=== PATIENT | male | born 1935 | race Caucasian/White ===

== ENCOUNTER 2019-03-25 10:59 | Inpatient (IN) | payer OTHER, BC ==
--- NOTE | 2019-03-25 12:50 | PDOC ---
Documentation entered by Pattie Lin SCRIBE, acting as scribe for Josiah Vazquez MD. Josiah Vazquez MD: This documentation has been prepared by the Delia martinez Brenda, SCRIBE, under my direction and personally reviewed by me in its entirety. I confirm that the documentation accurately reflects all work, treatment, procedures, and medical decision making performed by me. History of Present Illness - General Chief Complaint: Injury Stated Complaint: FALL/LEG PAIN Time Seen by Provider: 03/25/19 12:22 History Source: Patient Exam Limitations: No Limitations - History of Present Illness Initial Comments: 03/25/19 12:45 The patient is an 84 year old male, with a significant PMH of HTN, HLD and aortic valve replacement (not on AC) who presents to the emergency department BIBA s/p slipping on ice and falling. Patient reports falling on ice, and landing onto his R leg and side. Patient notes pain on the lateral right side of his ribs, as well as pain and swelling to his R thigh and knee. Pt was unable to stand up after the fall. The patient denies LOC, head trauma and neck trauma. Denies chest pain, shortness of breath, headache and dizziness. Denies fever, chills, nausea, vomiting, diarrhea and constipation. Denies dysuria, frequency, urgency and hematuria. Allergies: NKA Past surgical history: Aortic valve replacement (2012) Social history: Former smoker, moderate alcohol use. Past History - Past Medical History Allergies/Adverse Reactions: Allergies Allergy/AdvReac Type Severity Reaction Status Date / Time ciprofloxacin [From Cipro] AdvReac "THRUSH" Verified 03/25/19 11:20 Home Medications: Ambulatory Orders Atorvastatin Ca [Lipitor] 5 mg PO HS 10/25/14 Doxazosin Mesylate 2 mg PO HS 10/25/14 Olmesartan/Hydrochlorothiazide [Benicar Hct 40-25 mg Tablet] 1 each PO DAILY [place]-3 Acid Ethyl Esters [Lovaza -] 2 gm PO BID 10/25/14 Ranitidine [Zantac -] 150 mg PO BID 10/25/14 Verapamil HCl [Verapamil ER] 240 mg PO HS 10/25/14 Aspirin Coated [Ecotrin -] 81 mg PO DAILY #0 10/28/14 Niacin [Niaspan] 500 mg PO HS #0 10/28/14 Acetaminophen [Tylenol .Extra-Strength -] 500 mg PO BID 03/08/15 Ascorbic Acid [Vitamin C] 500 mg PO DAILY 03/08/15 Docusate Sodium [Colace -] 100 mg PO BID 03/08/15 Glucosamine HCl/Chondr Amador A Na [Glucosamine-Chondr Caplet] 1 each PO DAILY 03/08 Vitamin A [Aquasol A -] 10,000 units NR DAILY 03/08/15 Vitamin E 400 unit PO DAILY 03/08/15 Zinc [Guided Mineral Zinc] 50 mg PO DAILY 03/08/15 Anemia: No Asthma: No Cancer: No Cardiac Disorders: Yes (AORTIC VALVE REPLACEMENT 2012) CVA: No COPD: No CHF: No Dementia: No Diabetes: No GI Disorders: Yes (REFLUX, COLON POLYPS) Disorders: No HTN: Yes Hypercholesterolemia: Yes Liver Disease: No Seizures: No Thyroid Disease: No - Surgical History Abdominal Surgery: No Appendectomy: No Cardiac Surgery: Yes (AORTIC VALVE REPLACEMENT (BOVINE)) Cholecystectomy: No Lung Surgery: No Neurologic Surgery: No - Psycho Social/Smoking Cessation Hx Smoking History: Former smoker Have you smoked in the past 12 months: No If you are a former smoker, when did you quit?: 50YRS AGO Information on smoking cessation initiated: No Hx Alcohol Use: Yes ("MODERATELY") Drug/Substance Use Hx: No Substance Use Type: Alcohol Hx Substance Use Treatment: No Review of Systems - Review of Systems Able to Perform ROS?: Yes Comments:: 03/25/19 12:45 GENERAL/CONSTITUTIONAL: No fever or chills. No weakness. HEAD, EYES, EARS, NOSE AND THROAT: No change in vision. No ear pain or discharge. No sore throat. CARDIOVASCULAR: No chest pain, no shortness of breath, no loss of consciousness RESPIRATORY: No cough, wheezing, or hemoptysis. GASTROINTESTINAL: No nausea, vomiting, diarrhea or constipation. GENITOURINARY: No dysuria, frequency, or change in urination. MUSCULOSKELETAL: (+) Swollen right knee. (+) Pain in R thigh. No neck pain. SKIN: No rash NEUROLOGIC: No vertigo, no change in strength/sensation. ENDOCRINE: No increased thirst. No abnormal weight change. HEMATOLOGIC/LYMPHATIC: No anemia, easy bleeding, or history of blood clots. ALLERGIC/IMMUNOLOGIC: No hives or skin allergy. *Physical Exam - Vital Signs Last Vital Signs Temp Pulse Resp BP Pulse Ox 97.5 F L 80 16 155/59 L 98 03/25/19 11:15 03/25/19 11:30 03/25/19 11:30 03/25/19 11:30 03/25/19 11:30 - Physical Exam 03/25/19 12:54 "GENERAL: Awake, alert, and fully oriented, in no acute distress. HEAD: No signs of trauma EYES: PERRLA, EOMI, sclera anicteric, conjunctiva clear ENT: Auricles normal inspection, hearing grossly normal, nares patent, oropharynx clear without exudates. Moist mucosa NECK: Nontender, no stepoffs, Normal ROM, supple, no lymphadenopathy, JVD, or masses LUNGS: Breath sounds equal, clear to auscultation bilaterally. No wheezes, and no crackles HEART: Regular rate and rhythm, normal S1 and S2, no murmurs, rubs or gallops ABDOMEN: Soft, nontender, normoactive bowel sounds. No guarding, no rebound. No masses EXTREMITIES: + tenderness and swelling to distal R thigh, + R knee large hemarthrosis NEUROLOGICAL: Cranial nerves II through XII intact. 5/5 strength and sensation in all extremities, Normal speech, normal gait, normal cerebellar function SKIN: Warm, Dry, normal turgor, no rashes or lesions noted. ED Treatment Course - LABORATORY CBC & Chemistry Diagram: 03/27/19 12:10 03/27/19 12:10 Medical Decision Making - Medical Decision Making 03/25/19 12:55 84 M with pain and swelling to R thigh and knee after slip an fall on ice. Hips and ankles nontender with full ROM. No neck or back tenderness. - XRs 03/25/19 15:[address] negative for acute fx Pt unable to ambulate due to severe pain. 03/25/19 16:22 Pt admitted to hospitalist Discharge - Discharge Information Problems reviewed: Yes Clinical Impression/Diagnosis: Fall, Hemarthrosis - Admission Yes - Follow up/Referral - Patient Discharge Instructions - Post Discharge Activity
[2019-03-25] MEDS ORDERED: ACETAMINOPHEN 1000 MG/100 ML VIAL (NON FORMULARY) IVPB ONE (15:42)
[2019-03-25] MEDS ORDERED: ACETAMINOPHEN INJECTION 100 ML IVPB ONE (15:53)
--- NOTE | 2019-03-25 16:29 | HP ---
Admitting History and Physical - Admission Chief Complaint: slipped on ice landing on right leg History of Present Illness: The patient is an 84 year old male, with a significant PMH of HTN, HLD and AVR(t ) (not on AC) who was BIBA s/p slipping on ice and falling. Patient reports falling on ice, and landing onto his R leg and side. Patient notes pain on the lateral right side of his ribs, as well as pain and swelling to his R thigh and knee. Pt was unable to stand up after the fall. He denies LOC, chest pain, SOB , dizziness or alter mental status. History Source: Patient Limitations to Obtaining History: No Limitations - Past Medical History Cardiovascular: Yes: HTN, Hyperlipdemia - Past Surgical History Past Surgical History: Yes: Valve Replacement (AVR (t)) - Smoking History Smoking history: Former smoker Have you smoked in the past 12 months: No If you are a former smoker, when did you quit?: 50YRS AGO - Alcohol/Substance Use Hx Alcohol Use: Yes ("MODERATELY") - Social History Usual Living Arrangement: Yes: With Spouse ADL: Independent Occupation: retired History of Recent Travel: No Home Medications - Allergies Allergies/Adverse Reactions: Allergies Allergy/AdvReac Type Severity Reaction Status Date / Time ciprofloxacin [From Cipro] AdvReac "THRUSH" Verified 03/25/19 11:20 - Home Medications Home Medications: Ambulatory Orders Atorvastatin Ca [Lipitor] 5 mg PO HS 10/25/14 Doxazosin Mesylate 2 mg PO HS 10/25/14 Olmesartan/Hydrochlorothiazide [Benicar Hct 40-25 mg Tablet] 1 each PO DAILY [place]-3 Acid Ethyl Esters [Lovaza -] 2 gm PO BID 10/25/14 Ranitidine [Zantac -] 150 mg PO BID 10/25/14 Verapamil HCl [Verapamil ER] 240 mg PO HS 10/25/14 Aspirin Coated [Ecotrin -] 81 mg PO DAILY #0 10/28/14 Niacin [Niaspan] 500 mg PO HS #0 10/28/14 Acetaminophen [Tylenol .Extra-Strength -] 500 mg PO BID 03/08/15 Ascorbic Acid [Vitamin C] 500 mg PO DAILY 03/08/15 Docusate Sodium [Colace -] 100 mg PO BID 03/08/15 Glucosamine HCl/Chondr Amador A Na [Glucosamine-Chondr Caplet] 1 each PO DAILY 03/08 Vitamin A [Aquasol A -] 10,000 units NR DAILY 03/08/15 Vitamin E 400 unit PO DAILY 03/08/15 Zinc [Guided Mineral Zinc] 50 mg PO DAILY 03/08/15 Family Medical History Family History: Denies Review of Systems - Review of Systems Constitutional: reports: No Symptoms Eyes: reports: No Symptoms HENT: reports: No Symptoms Neck: reports: No Symptoms Cardiovascular: reports: No Symptoms Respiratory: reports: No Symptoms Gastrointestinal: reports: No Symptoms Genitourinary: reports: No Symptoms Breasts: reports: No Symptoms Reported Musculoskeletal: reports: Joint Pain, Joint Swelling Integumentary: reports: No Symptoms Neurological: reports: No Symptoms Endocrine: reports: No Symptoms Hematology/Lymphatic: reports: No Symptoms Psychiatric: reports: No Symptoms Physical Examination Vital Signs: Vital Signs Temperature 97.5 F L 03/25/19 11:15 Pulse Rate 80 03/25/19 11:30 Respiratory Rate 16 03/25/19 11:30 Blood Pressure 155/59 L 03/25/19 11:30 O2 Sat by Pulse Oximetry (%) 98 03/25/19 11:30 Constitutional: Yes: Well Nourished, No Distress, Calm Eyes: Yes: WNL, Conjunctiva Clear, EOM Intact HENT: Yes: WNL, Atraumatic, Normocephalic Neck: Yes: WNL, Supple, Trachea Midline Cardiovascular: Yes: WNL, Regular Rate and Rhythm Respiratory: Yes: WNL, Regular, CTA Bilaterally Gastrointestinal: Yes: WNL, Normal Bowel Sounds ...Rectal Exam: Yes: Deferred Renal/: Yes: WNL Breast(s): Yes: WNL Extremities: Yes: Deformity (right knee soft tissue swelling, +hemarthrosis) Edema: No Peripheral Pulses WNL: Yes Peripheral Pulses: Left Radial: 2+, Right Radial: 2+, Left Doralis Pedis: 2+, Right Dorsalis Pedis: 2+, Left Femoral: 2+, Right Femoral: 2+ Integumentary: Yes: Bruising (right knww) Neurological: Yes: WNL, Alert, Oriented ...Motor Strength: RLE (unable to bear weight) Psychiatric: Yes: WNL Imaging - Results X-ray: Report Reviewed (Rib/lumbar/knee/hip/pelvis all without acute fx. Knee with joint effusion) Cat Scan: Report Reviewed (HCT without acute pathology) Problem List - Problems (1) Prophylactic measure Assessment/Plan: FEN adeguate PO in take monitor electrolytes cardiac diet DVT no AC, hold ASA Dispo admit to med surg full code discharge planning to home-if not able to ambulate possible SNF Code(s): Z29.9 - ENCOUNTER FOR PROPHYLACTIC MEASURES, UNSPECIFIED (2) Fall Assessment/Plan: s/p fall on ice all xray images without acute fracture +hemarthrosis to right knee knee immobilizer in place otho consult requested possible MRI knee in am ice to right knee Code(s): W19.XXXA - UNSPECIFIED FALL, INITIAL ENCOUNTER (3) Hemarthrosis Assessment/Plan: knee immobilizer Code(s): M25.00 - HEMARTHROSIS, UNSPECIFIED JOINT (4) Aortic valve replaced Assessment/Plan: no AC hold asa with hemarthrosis Code(s): Z95.2 - PRESENCE OF PROSTHETIC HEART VALVE (5) HLD (hyperlipidemia) Assessment/Plan: c/w atorvastatin cardiac diet Code(s): E78.5 - HYPERLIPIDEMIA, UNSPECIFIED (6) HTN (hypertension) Assessment/Plan: c/w verapamil/cardura Code(s): I10 - ESSENTIAL (PRIMARY) HYPERTENSION (7) Sleep apnea Assessment/Plan: uses Cpap nightly Code(s): G47.30 - SLEEP APNEA, UNSPECIFIED Visit type - Emergency Visit Emergency Visit: Yes ED Registration Date: 03/25/19 Care time: The patient presented to the Emergency Department on the above date and was hospitalized for further evaluation of their emergent condition. - New Patient This patient is new to me today: Yes Date on this admission: 03/25/19 - Critical Care Critical Care patient: No
[2019-03-25 16:37] LABS: BASO % 0.2 % (0-2.0); EOS % 0.7 % (0-4.5); HEMATOCRIT 34.8 % (35.4-49); HEMOGLOBIN 11.5 GM/dL (11.7-16.9); MCH 31.2 pg (25.7-33.7); MCHC 33.1 g/dl (32.0-35.9); MEAN CELL VOLUME 94.1 fl (80-96); MEAN PLT VOLUME 9.1 fl (7.5-11.1); MONO % 6.1 % (3.8-10.2); PLATELET COUNT 179 K/MM3 (134-434); RDW 13.4 % (11.9-15.9); WHITE BLOOD COUNT 12.7 K/mm3 (4.0-10.0)
[2019-03-25 16:50] LABS: PROTHROMBIN TIME (PATIENT) 11.8 SEC (9.7-13.0)
[2019-03-25 17:02] LABS: ALBUMIN 4.2 g/dl (3.4-5.0); BILIRUBIN,TOTAL 0.5 mg/dL (0.2-1); BLOOD UREA NITROGEN 25.2 mg/dL (7-18)
[2019-03-25] MEDS ORDERED: ACETAMINOPHEN 1000 MG/100 ML VIAL (NON FORMULARY) IVPB PRN (21:00)
[2019-03-26] MEDS ORDERED: ATORVASTATIN CA 10 MG TABLET (FP) ONE (00:53)
[2019-03-26] MEDS ORDERED: DOCUSATE SODIUM 100 MG CAPSULE (FP) PO ONE (00:53)
[2019-03-26] MEDS ORDERED: HEPARIN NA (PORCINE) 5,000 UNITS/ML 1ML VIAL ONE (00:53)
[2019-03-26] MEDS: HEPARIN NA (PORCINE) 5,000 UNITS/ML 1ML VIAL SQ SCH ×3 (01:08→22:53)
[2019-03-26] MEDS: OMEGA-3 ACID ETHYL ESTERS (FATTY-ACIDS) 1 GM CAPSULE (FP) PO SCH ×3 (01:08→22:47)
[2019-03-26] MEDS: VERAPAMIL HCL 240 MG E.R. TABLET PO SCH ×2 (01:08→23:20)
[2019-03-26] MEDS: DOCUSATE SODIUM 100 MG CAPSULE (FP) PO SCH ×3 (01:08→22:53)
[2019-03-26] MEDS: ATORVASTATIN CA 10 MG TABLET (FP) PO SCH ×2 (01:08→22:53)
[2019-03-26] MEDS: DOXAZOSIN MESYLATE 2 MG TABLET (FP) PO SCH ×2 (01:08→22:47)
[2019-03-26] MEDS ORDERED: ACETAMINOPHEN INJECTION 100 ML IVPB ONE (01:12)
--- NOTE | 2019-03-26 08:36 | PN ---
Progress Note (short form) - Note Progress Note: Pt seen and examined in ER. He is an 84 year old male pt, slipped and fell on the ice yesterday. Mechanical fall, denies CP, SOB, RICHARD or any other symptoms prior to fall. Could not get up, cannot ambulate. C/o swelling of the right knee , no pain. + h/o HTN, Aortic valve replacement, on ASA 81mg. PE Right knee is very swollen and ecchymotic Large hemarthrosis RLE is grossly NVI, but he has limitations in active ROM, he cannot actively extend the knee beyond 15 degrees Poor knee extension resistance strength No gross instability X-rays Right knee, femur, hip, pelvis, LS spine are all notmal, no acute bony pathology, + OA Imp 84 yo M 1 day s/p fall with a possible acute right distal quadriceps tendon rupture Rec MRI (or CT scan if MRI not possible) to rule out right distal quad tendon rupture Knee immobilizer Elevation, rest Possible aspiration for comfort Can WBAT in brace with knee in extension
[2019-03-26] MEDS ORDERED: RANITIDINE HCL 150 MG/10 ML UNIT-DOSE PO SCH (12:45)
[2019-03-26] MEDS ORDERED: ASCORBIC ACID 250 MG TABLET (FP) PO SCH (13:00)
[2019-03-26] MEDS: VITAMIN A 10,000 UNITS CAPSULE NR SCH (13:08)
[2019-03-26] MEDS: VITAMIN E 400 INTERNATIONAL-UNITS CAPSULE (FP) PO SCH (13:38)
[2019-03-26] MEDS: ASCORBIC ACID 500 MG TABLET (FP) PO SCH (16:38)
--- NOTE | 2019-03-26 17:38 | PN ---
Progress Note, Physician History of Present Illness: The patient is an 84 year old male, with a significant PMH of HTN, HLD and AVR(t ) (not on AC) who was BIBA s/p slipping on ice and falling. Patient reports falling on ice, and landing onto his R leg and side. Patient notes pain on the lateral right side of his ribs, as well as pain and swelling to his R thigh and knee. Pt was unable to stand up after the fall. He denies LOC, chest pain, SOB , dizziness or alter mental status. - Current Medication List Current Medications: Active Medications Acetaminophen (Ofirmev Injection -) 1,000 mg IVPB Q6H PRN PRN Reason: PAIN LEVEL 6-10 Last Admin: 03/26/19 01:21 Dose: 1,000 mg Ascorbic Acid (Vitamin C -) 500 mg PO DAILY [facility] Last Admin: 03/26/19 16:38 Dose: 500 mg Atorvastatin Calcium (Lipitor -) 5 mg PO HS [facility] Last Admin: 03/26/19 01:08 Dose: 5 mg Docusate Sodium (Colace -) 100 mg PO BID [facility] Last Admin: 03/26/19 11:23 Dose: 100 mg Doxazosin Mesylate (Cardura -) 2 mg PO HS [facility] Last Admin: 03/26/19 01:08 Dose: 2 mg Famotidine (Pepcid) 20 mg PO BID [facility] Heparin Sodium (Porcine) (Heparin -) 5,000 unit SQ BID [facility] Last Admin: 03/26/19 11:23 Dose: 5,000 unit Niacin (Niacin) 500 mg PO DAILY@2200 [facility] [id number] Ethyl Esters (Lovaza -) 2 gm PO BID [facility] Last Admin: 03/26/19 11:23 Dose: 2 gm Verapamil HCl (Calan Sr -) 240 mg PO HS [facility] Last Admin: 03/26/19 01:08 Dose: 240 mg Vitamin A (Aquasol A -) 10,000 units NR DAILY [facility] Last Admin: 03/26/19 13:08 Dose: 10,000 units Vitamin E (Vitamin E -) 400 unit PO DAILY [facility] Last Admin: 03/26/19 13:38 Dose: 400 unit - Objective Vital Signs: Vital Signs Temperature 98.4 F 03/26/19 14:44 Pulse Rate 88 03/26/19 14:44 Respiratory Rate 18 03/26/19 14:44 Blood Pressure 108/60 03/26/19 14:44 O2 Sat by Pulse Oximetry (%) 95 03/26/19 07:09 Constitutional: Yes: Well Nourished, No Distress, Calm Eyes: Yes: WNL, Conjunctiva Clear HENT: Yes: WNL, Atraumatic, Normocephalic Neck: Yes: WNL, Supple, Trachea Midline Cardiovascular: Yes: WNL, Regular Rate and Rhythm Respiratory: Yes: WNL, Regular, CTA Bilaterally Gastrointestinal: Yes: WNL, Normal Bowel Sounds ...Rectal Exam: Yes: Deferred Genitourinary: Yes: WNL Breast(s): Yes: WNL Musculoskeletal: Yes: Joint Stiffness, Joint Swelling, Muscle Pain Extremities: Yes: Other (right knee soft tissue swelling, +hemarthrosis) Edema: Yes Edema: RLE: 2+ Peripheral Pulses WNL: No Peripheral Pulses: Left Radial: 2+, Right Radial: 2+, Left Doralis Pedis: 2+, Right Dorsalis Pedis: 1+, Left Femoral: 2+, Right Femoral: 2+ Integumentary: Yes: Bruising, Other (right knee) Neurological: Yes: WNL, Alert, Oriented ...Motor Strength: RLE (edcreased secondary to pain and swelling) Psychiatric: Yes: WNL Labs: CBC, BMP 03/25/19 16:15 03/25/19 16:15 INR, PTT INR 1.00 (0.83-1.09) 03/25/19 16:15 Problem List - Problems (1) Prophylactic measure Assessment/Plan: FEN adeguate PO in take monitor electrolytes cardiac diet DVT no AC, hold ASA Dispo admit to med surg full code [facility] has offered bed for patient, pending medical clearance on saturday Code(s): Z29.9 - ENCOUNTER FOR PROPHYLACTIC MEASURES, UNSPECIFIED (2) Fall Assessment/Plan: s/p fall on ice all xray images without acute fracture +hemarthrosis to right knee knee immobilizer in place appreciate othro consultation MRI knee pending ice to right knee Code(s): W19.XXXA - UNSPECIFIED FALL, INITIAL ENCOUNTER (3) Hemarthrosis Assessment/Plan: knee immobilizer Code(s): M25.00 - HEMARTHROSIS, UNSPECIFIED JOINT (4) Aortic valve replaced Assessment/Plan: no AC hold asa with hemarthrosis Code(s): Z95.2 - PRESENCE OF PROSTHETIC HEART VALVE (5) HLD (hyperlipidemia) Assessment/Plan: c/w atorvastatin cardiac diet Code(s): E78.5 - HYPERLIPIDEMIA, UNSPECIFIED (6) HTN (hypertension) Assessment/Plan: c/w verapamil/cardura Code(s): I10 - ESSENTIAL (PRIMARY) HYPERTENSION (7) Sleep apnea Assessment/Plan: uses Cpap nightly Code(s): G47.30 - SLEEP APNEA, UNSPECIFIED Visit type - Emergency Visit Emergency Visit: Yes ED Registration Date: 03/25/19 Care time: The patient presented to the Emergency Department on the above date and was hospitalized for further evaluation of their emergent condition. - New Patient This patient is new to me today: No - Critical Care Critical Care patient: No - Discharge Referral Referred to [facility] Med P.C.: No
[2019-03-26 21:13] VITALS: BMI 28.5
[2019-03-26] MEDS ORDERED: NIACIN 500 MG TABLET PO SCH (22:00)
[2019-03-26] MEDS: FAMOTIDINE 40 MG/5 ML ORAL SUSPENSION PO SCH (22:47)
--- NOTE | 2019-03-27 08:33 | PN ---
Progress Note, Physician Chief Complaint: MRI revealed full thickness tear of quad tendon. NPO for OR today with Dr Call History of Present Illness: The patient is an 84 year old male, with a significant PMH of HTN, HLD and AVR(t ) (not on AC) who was BIBA s/p slipping on ice and falling. Patient reports falling on ice, and landing onto his R leg and side. Patient notes pain on the lateral right side of his ribs, as well as pain and swelling to his R thigh and knee. Pt was unable to stand up after the fall. He denies LOC, chest pain, SOB , dizziness or alter mental status. - Current Medication List Current Medications: Active Medications Acetaminophen (Ofirmev Injection -) 1,000 mg IVPB Q6H PRN PRN Reason: PAIN LEVEL 6-10 Last Admin: 03/26/19 01:21 Dose: 1,000 mg Ascorbic Acid (Vitamin C -) 500 mg PO DAILY REPLACED BY [facility] Last Admin: 03/26/19 16:38 Dose: 500 mg Atorvastatin Calcium (Lipitor -) 5 mg PO HS REPLACED BY [facility] Last Admin: 03/26/19 22:53 Dose: 5 mg Docusate Sodium (Colace -) 100 mg PO BID REPLACED BY [facility] Last Admin: 03/26/19 22:53 Dose: 100 mg Doxazosin Mesylate (Cardura -) 2 mg PO HS REPLACED BY [facility] Last Admin: 03/26/19 22:47 Dose: 2 mg Famotidine (Pepcid) 20 mg PO BID REPLACED BY [facility] Last Admin: 03/26/19 22:47 Dose: 20 mg Heparin Sodium (Porcine) (Heparin -) 5,000 unit SQ BID REPLACED BY [facility] Last Admin: 03/26/19 22:53 Dose: 5,000 unit Niacin (Niacin) 500 mg PO DAILY@2200 REPLACED BY [facility] Last Admin: 03/26/19 22:47 Dose: 500 mg [id number] Ethyl Esters (Lovaza -) 2 gm PO BID REPLACED BY [facility] Last Admin: 03/26/19 22:47 Dose: 2 gm Verapamil HCl (Calan Sr -) 240 mg PO HS REPLACED BY [facility] Last Admin: 03/26/19 23:20 Dose: 240 mg Vitamin A (Aquasol A -) 10,000 units NR DAILY REPLACED BY [facility] Last Admin: 03/26/19 13:08 Dose: 10,000 units Vitamin E (Vitamin E -) 400 unit PO DAILY REPLACED BY [facility] Last Admin: 03/26/19 13:38 Dose: 400 unit - Objective Vital Signs: Vital Signs Temperature 98.9 F 03/27/19 06:00 Pulse Rate 80 03/27/19 06:00 Respiratory Rate 18 03/27/19 06:00 Blood Pressure 122/54 L 03/27/19 06:00 O2 Sat by Pulse Oximetry (%) 95 03/27/19 00:05 Additional Findings/Remarks: Constitutional: Yes: Well Nourished, No Distress, Calm Eyes: Yes: WNL, Conjunctiva Clear, EOM Intact HENT: Yes: WNL, Atraumatic, Normocephalic Neck: Yes: WNL, Supple, Trachea Midline Cardiovascular: Yes: WNL, Regular Rate and Rhythm Respiratory: Yes: WNL, Regular, CTA Bilaterally Gastrointestinal: Yes: WNL, Normal Bowel Sounds ...Rectal Exam: Yes: Deferred Renal/: Yes: WNL Breast(s): Yes: WNL Extremities: Yes: Deformity (right knee soft tissue swelling less, +hemarthrosis ) Edema: No Peripheral Pulses WNL: Yes Peripheral Pulses: Left Radial: 2+, Right Radial: 2+, Left Doralis Pedis: 2+, Right Dorsalis Pedis: 2+, Left Femoral: 2+, Right Femoral: 2+ Integumentary: Yes: Bruising (right knee) Neurological: Yes: WNL, Alert, Oriented ...Motor Strength: RLE (unable to bear weight) Psychiatric: Yes: WNL Labs: CBC, BMP 03/25/19 16:15 03/25/19 16:15 INR, PTT INR 1.00 (0.83-1.09) 03/25/19 16:15 - ....Imaging MRI: Report Reviewed Problem List - Problems (1) Prophylactic measure Assessment/Plan: FEN NPO for OR monitor electrolytes cardiac diet DVT no AC, hold ASA Dispo admit to med surg full code [facility] Gilbert has offered bed for patient Code(s): Z29.9 - ENCOUNTER FOR PROPHYLACTIC MEASURES, UNSPECIFIED (2) Fall Assessment/Plan: s/p fall on ice all xray images without acute fracture +hemarthrosis to right knee knee immobilizer in place appreciate othro consultation MRI knee pending ice to right knee Code(s): W19.XXXA - UNSPECIFIED FALL, INITIAL ENCOUNTER (3) Hemarthrosis Assessment/Plan: knee immobilizer Code(s): M25.00 - HEMARTHROSIS, UNSPECIFIED JOINT (4) Aortic valve replaced Assessment/Plan: no AC hold asa with hemarthrosis Code(s): Z95.2 - PRESENCE OF PROSTHETIC HEART VALVE (5) HLD (hyperlipidemia) Assessment/Plan: c/w atorvastatin cardiac diet Code(s): E78.5 - HYPERLIPIDEMIA, UNSPECIFIED (6) HTN (hypertension) Assessment/Plan: c/w verapamil/cardura Code(s): I10 - ESSENTIAL (PRIMARY) HYPERTENSION (7) Sleep apnea Assessment/Plan: uses Cpap nightly Code(s): G47.30 - SLEEP APNEA, UNSPECIFIED (8) Quadriceps tendon rupture Assessment/Plan: full thickness tear of right quad tendon OR planned with Dr Call Code(s): S76.119A - STRAIN OF UNSP QUADRICEPS MUSCLE, FASCIA AND TENDON, INIT Visit type - Emergency Visit Emergency Visit: Yes ED Registration Date: 03/25/19 Care time: The patient presented to the Emergency Department on the above date and was hospitalized for further evaluation of their emergent condition. - New Patient This patient is new to me today: No - Critical Care Critical Care patient: No - Discharge Referral Referred to [facility] Med P.C.: No
[2019-03-27] MEDS: FAMOTIDINE 40 MG/5 ML ORAL SUSPENSION PO SCH ×2 (10:23→21:54)
[2019-03-27] MEDS: ASCORBIC ACID 500 MG TABLET (FP) PO SCH (10:27)
[2019-03-27] MEDS: OMEGA-3 ACID ETHYL ESTERS (FATTY-ACIDS) 1 GM CAPSULE (FP) PO SCH ×2 (10:27→21:54)
[2019-03-27] MEDS: VITAMIN E 400 INTERNATIONAL-UNITS CAPSULE (FP) PO SCH (10:27)
[2019-03-27] MEDS: HEPARIN NA (PORCINE) 5,000 UNITS/ML 1ML VIAL SQ SCH (10:27)
[2019-03-27] MEDS: VITAMIN A 10,000 UNITS CAPSULE NR SCH (10:27)
[2019-03-27] MEDS: DOCUSATE SODIUM 100 MG CAPSULE (FP) PO SCH ×2 (10:27→21:53)
[2019-03-27] MEDS ORDERED: SODIUM CHLORIDE 1,000 ML IV SCH (11:15)
[2019-03-27] MEDS ORDERED: DEXAMETHASONE SOD PHOSPHATE/PF 10 MG/ML SDV ONE (11:57)
[2019-03-27 12:26] LABS: BASO % 0.4 % (0-2.0); EOS % 3.3 % (0-4.5); HEMATOCRIT 27.6 % (35.4-49); HEMOGLOBIN 9.2 GM/dL (11.7-16.9); MCH 31.3 pg (25.7-33.7); MCHC 33.5 g/dl (32.0-35.9); MEAN CELL VOLUME 93.4 fl (80-96); MEAN PLT VOLUME 8.3 fl (7.5-11.1); MONO % 10.6 % (3.8-10.2); NEUT % 69.7 % (42.8-82.8); PLATELET COUNT 150 K/MM3 (134-434); RBC 2.95 M/mm3 (4.00-5.60); RDW 13.9 % (11.9-15.9); WHITE BLOOD COUNT 8.3 K/mm3 (4.0-10.0)
[2019-03-27] MEDS ORDERED: MIDAZOLAM HCL 2 MG/2 ML SINGLE DOSE VIAL ONE ×2 (12:30)
[2019-03-27] MEDS ORDERED: oxyCODONE HCL 5 MG TABLET PO PRN ×2 (12:46→20:40)
[2019-03-27 12:59] LABS: ALBUMIN 3.5 g/dl (3.4-5.0); BILIRUBIN,TOTAL 0.4 mg/dL (0.2-1); BLOOD UREA NITROGEN 26.8 mg/dL (7-18); CALCIUM 8.5 mg/dL (8.5-10.1); MAGNESIUM 2.2 mg/dL (1.8-2.4); POTASSIUM 3.6 mmol/L (3.5-5.1)
[2019-03-27] MEDS ORDERED: ceFAZolin SODIUM 1 GM VIAL IVPB ONE (13:09)
[2019-03-27] MEDS ORDERED: ceFAZolin SODIUM 1 GM VIAL ONE (13:22)
--- NOTE | 2019-03-27 14:13 | OP ---
Operative Note - Note: Operative Date: 03/27/19 ([facility]) Pre-Operative Diagnosis: right quad tendon rupture Operation: right quad tendon repair Post-Operative Diagnosis: Same as Pre-op Surgeon: Stephan Dougherty Photogrammetry Airplane Pilot: Steffen Solitario Anesthesiologist/EGG TESTER: Frida Lentz Anesthesia: Local Estimated Blood Loss (mls): 25
[2019-03-27] MEDS ORDERED: PT OWN MED DRAWER 7, Y5N ONE (20:51)
[2019-03-27] MEDS: ATORVASTATIN CA 10 MG TABLET (FP) PO SCH (21:53)
[2019-03-27] MEDS: VERAPAMIL HCL 240 MG E.R. TABLET PO SCH (21:54)
[2019-03-27] MEDS: DOXAZOSIN MESYLATE 2 MG TABLET (FP) PO SCH (21:54)
[2019-03-27] MEDS: SODIUM CHLORIDE 1,000 ML IV SCH ×2 (21:54)
[2019-03-27] MEDS: NIACIN 500 MG TABLET PO SCH (21:54)
[2019-03-27] MEDS: ACETAMINOPHEN 1000 MG/100 ML VIAL (NON FORMULARY) IVPB PRN (22:03)
[2019-03-27] MEDS: ceFAZolin 2 GRAM PREMIX BAG IVPB SCH (22:29)
[2019-03-27] MEDS ORDERED: ceFAZolin 2 GRAM PREMIX BAG IVPB SCH (23:00)
[2019-03-28] MEDS: ceFAZolin 2 GRAM PREMIX BAG IVPB SCH (06:05)
--- NOTE | 2019-03-28 08:43 | PN ---
Progress Note, Physician Chief Complaint: POD#1 quad tendon rupture repair. c/o minimal pain History of Present Illness: The patient is an 84 year old male, with a significant PMH of HTN, HLD and AVR(t ) (not on AC) who was BIBA s/p slipping on ice and falling. Patient reports falling on ice, and landing onto his R leg and side. Patient notes pain on the lateral right side of his ribs, as well as pain and swelling to his R thigh and knee. Pt was unable to stand up after the fall. He denies LOC, chest pain, SOB , dizziness or alter mental status. - Current Medication List Current Medications: Active Medications Acetaminophen (Ofirmev Injection -) 1,000 mg IVPB Q6H PRN PRN Reason: PAIN LEVEL 6-10 Last Admin: 03/27/19 22:03 Dose: 1,000 mg Ascorbic Acid (Vitamin C -) 500 mg PO DAILY [facility] Atorvastatin Calcium (Lipitor -) 5 mg PO HS [facility] Last Admin: 03/27/19 21:53 Dose: 5 mg Docusate Sodium (Colace -) 100 mg PO BID [facility] Last Admin: 03/27/19 21:53 Dose: 100 mg Doxazosin Mesylate (Cardura -) 2 mg PO HS [facility] Last Admin: 03/27/19 21:54 Dose: 2 mg Famotidine (Pepcid) 20 mg PO BID [facility] Last Admin: 03/27/19 21:54 Dose: 20 mg Fentanyl (Sublimaze Injection -) 25 mcg IVPUSH [id number] PRN PRN Reason: PAIN-PACU ORDER X 4 DOSES ONLY Sodium Chloride (Normal Saline -) 1,000 mls @ 75 mls/hr IV ASDIR [facility] Last Admin: 03/27/19 21:54 Dose: Not Given Sodium Chloride (Normal Saline -) 1,000 mls @ 75 mls/hr IV ASDIR [facility] Last Admin: 03/27/19 21:54 Dose: Not Given Niacin (Niacin) 500 mg PO DAILY@2200 [facility] Last Admin: 03/27/19 21:54 Dose: 500 mg Dgosi-5-Rrge Ethyl Esters (Lovaza -) 2 gm PO BID [facility] Last Admin: 03/27/19 21:54 Dose: 2 gm Oxycodone HCl (Roxicodone -) 5 mg PO Q4H PRN PRN Reason: PAIN LEVEL 7 - 10 Verapamil HCl (Calan Sr -) 240 mg PO HS [facility]IO Last Admin: 03/27/19 21:54 Dose: 240 mg Vitamin A (Aquasol A -) 10,000 units PO DAILY [facility] Vitamin E (Vitamin E -) 400 unit PO DAILY MARIO - Objective Vital Signs: Vital Signs Temperature 98.4 F 03/28/19 06:41 Pulse Rate 90 03/28/19 06:41 Respiratory Rate 18 03/28/19 06:41 Blood Pressure 124/73 03/28/19 06:41 O2 Sat by Pulse Oximetry (%) 96 03/27/19 21:35 Constitutional: Yes: Well Nourished, No Distress, Calm Eyes: Yes: WNL, Conjunctiva Clear HENT: Yes: WNL, Atraumatic, Normocephalic Neck: Yes: WNL, Supple, Trachea Midline Cardiovascular: Yes: WNL, Regular Rate and Rhythm Respiratory: Yes: WNL, Regular, CTA Bilaterally Gastrointestinal: Yes: WNL, Normal Bowel Sounds ...Rectal Exam: Yes: Deferred Genitourinary: Yes: WNL Breast(s): Yes: WNL Musculoskeletal: Yes: Joint Stiffness, Joint Swelling Extremities: Yes: WNL Edema: Yes Edema: LLE: Trace, RLE: 1+ Peripheral Pulses WNL: Yes Peripheral Pulses: Left Radial: 2+, Right Radial: 2+, Left Doralis Pedis: 2+, Right Dorsalis Pedis: 2+, Left Femoral: 2+, Right Femoral: 2+ Integumentary: Yes: WNL Wound/Incision: Yes: Clean/Dry, [place] Intact, Other (knee immobilizer in place ) Neurological: Yes: WNL, Alert, Oriented ...Motor Strength: LLE, RLE (POD #1) Psychiatric: Yes: WNL Labs: CBC, BMP 03/27/19 12:10 03/27/19 12:10 INR, PTT INR 1.00 (0.83-1.09) 03/25/19 16:15 Problem List - Problems (1) Prophylactic measure Assessment/Plan: FEN tolerating diet monitor electrolytes cardiac diet DVT no AC, hold ASA Dispo admit to med surg full code [facility] accepted pt-can go tnrw Code(s): Z29.9 - ENCOUNTER FOR PROPHYLACTIC MEASURES, UNSPECIFIED (2) Fall Assessment/Plan: s/p fall on ice POD#1 quad tendon rupture repair Code(s): W19.XXXA - UNSPECIFIED FALL, INITIAL ENCOUNTER (3) Hemarthrosis Assessment/Plan: POD#1 knee immobilizer Code(s): M25.00 - HEMARTHROSIS, UNSPECIFIED JOINT (4) Aortic valve replaced Assessment/Plan: no AC hold asa with hemarthrosis Code(s): Z95.2 - PRESENCE OF PROSTHETIC HEART VALVE (5) HLD (hyperlipidemia) Assessment/Plan: c/w atorvastatin cardiac diet Code(s): E78.5 - HYPERLIPIDEMIA, UNSPECIFIED (6) HTN (hypertension) Assessment/Plan: c/w verapamil/cardura Code(s): I10 - ESSENTIAL (PRIMARY) HYPERTENSION (7) Sleep apnea Assessment/Plan: uses Cpap nightly doesnt like hospital CPAP machine-didnt use last night-daughter to bring in home machine Code(s): G47.30 - SLEEP APNEA, UNSPECIFIED (8) Quadriceps tendon rupture Assessment/Plan: full thickness tear of right quad tendon POD#1 quad tendon repair Code(s): S76.119A - STRAIN OF UNSP QUADRICEPS MUSCLE, FASCIA AND TENDON, INIT (9) Pain, postoperative, acute Assessment/Plan: POD#1 minimal pain c/w PT tramadol/anny prn pain Code(s): G89.18 - OTHER ACUTE POSTPROCEDURAL PAIN Visit type - Emergency Visit Emergency Visit: Yes ED Registration Date: 03/25/19 Care time: The patient presented to the Emergency Department on the above date and was hospitalized for further evaluation of their emergent condition. - New Patient This patient is new to me today: No - Critical Care Critical Care patient: No - Discharge Referral Referred to [facility] No
[2019-03-28] MEDS: FAMOTIDINE 40 MG/5 ML ORAL SUSPENSION PO SCH ×2 (09:12→22:55)
[2019-03-28] MEDS: VITAMIN A 10,000 UNITS CAPSULE PO SCH (09:13)
[2019-03-28] MEDS: OMEGA-3 ACID ETHYL ESTERS (FATTY-ACIDS) 1 GM CAPSULE (FP) PO SCH ×2 (09:13→22:57)
[2019-03-28] MEDS: VITAMIN E 400 INTERNATIONAL-UNITS CAPSULE (FP) PO SCH (09:14)
[2019-03-28] MEDS: ASCORBIC ACID 500 MG TABLET (FP) PO SCH (09:14)
[2019-03-28] MEDS: DOCUSATE SODIUM 100 MG CAPSULE (FP) PO SCH ×2 (09:14→22:56)
--- NOTE | 2019-03-28 11:47 | PN ---
Progress Note (short form) - Note Progress Note: Ortho Pt seen and examined s/p right quad tendon repair pod #1. Doing well Selected Entries 03/28/19 06:41 Temperature 98.4 F Pulse Rate 90 Respiratory 18 Rate Blood Pressure 124/73 Laboratory Tests 03/27/19 12:10 WBC 8.3 Hgb 9.2 L Hct 27.6 L D Plt Count 150 dressing c/d/i, calf soft, nt nvi a/p PT wbat with knee immobilizer on No flexing of the knee pain control 'd/c planning to rehab
--- NOTE | 2019-03-28 20:37 | PN ---
Progress Note (short form) - Note Progress Note: 84M s/p quadriceps repair under spinal with PNB. No new c/o. Vital Signs Period Temp Pulse Resp BP Sys/Gonzalez Pulse Ox Last 24 Hr 98.1 F-99.4 F 77-90 18-20 108-130/51-73 96-98 CBC, BMP 03/27/19 12:10 03/27/19 12:10 Home Medication List Medication Instructions Recorded Confirmed Type Atorvastatin Ca [Lipitor] 5 mg PO HS 10/25/14 03/25/19 History Doxazosin Mesylate 2 mg PO HS 10/25/14 03/25/19 History Olmesartan/Hydrochlorothiazide 1 each PO DAILY 10/25/14 03/25/19 History [Benicar Hct 40-25 mg Tablet] Parrish-3 Acid Ethyl Esters [Lovaza 2 gm PO BID 10/25/14 03/25/19 History -] Ranitidine [Zantac -] 150 mg PO BID 10/25/14 03/25/19 History Verapamil HCl [Verapamil ER] 240 mg PO HS 10/25/14 03/25/19 History Acetaminophen [Tylenol 500 mg PO BID 03/08/15 03/25/19 History .Extra-Strength -] Ascorbic Acid [Vitamin C] 500 mg PO DAILY 03/08/15 03/25/19 History Docusate Sodium [Colace -] 100 mg PO BID 03/08/15 03/25/19 History Glucosamine HCl/Chondr Amador A Na 1 each PO DAILY 03/08/15 03/25/19 History [Glucosamine-Chondr Caplet] Vitamin A [Aquasol A -] 10,000 units NR DAILY 03/08/15 03/25/19 History Vitamin E 400 unit PO DAILY 03/08/15 03/25/19 History Zinc [Guided Mineral Zinc] 50 mg PO DAILY 03/08/15 03/25/19 History Active Medications Generic Name Dose Route Start Last Admin Trade Name Freq PRN Reason Stop Dose Admin Acetaminophen 1,000 mg 03/27/19 20:40 03/27/19 22:03 Ofirmev Injection - IVPB 1,000 mg Q6H PRN Administration PAIN LEVEL 6-10 Ascorbic Acid 500 mg 03/28/19 10:00 03/28/19 09:14 Vitamin C - PO 500 mg DAILY MARIO Administration Atorvastatin Calcium 5 mg 03/27/19 22:00 03/27/19 21:53 Lipitor - PO 5 mg HS MARIO Administration Docusate Sodium 100 mg 03/27/19 22:00 03/28/19 09:14 Colace - PO 100 mg BID MARIO Administration Doxazosin Mesylate 2 mg 03/27/19 22:00 03/27/19 21:54 Cardura - PO 2 mg HS MARIO Administration Famotidine 20 mg 03/27/19 22:00 03/28/19 09:12 Pepcid PO 20 mg BID MARIO Administration Fentanyl 25 mcg 03/27/19 14:17 Sublimaze Injection - IVPUSH [id number] PRN PAIN-PACU ORDER X 4 DOSES ONLY Sodium Chloride 1,000 mls @ 75 mls/hr 03/27/19 14:30 03/27/19 21:54 Normal Saline - IV Not Given ASDIR MARIO Sodium Chloride 1,000 mls @ 75 mls/hr 03/27/19 20:40 03/27/19 21:54 Normal Saline - IV Not Given ASDIR MARIO Niacin 500 mg 03/27/19 22:00 03/27/19 21:54 Niacin PO 500 mg DAILY@2200 MARIO Administration Dyxmc-3-Riip Ethyl Esters 2 gm 03/27/19 22:00 03/28/19 09:13 Lovaza - PO 2 gm BID MARIO Administration Oxycodone HCl 5 mg 03/27/19 20:40 Roxicodone - PO Q4H PRN PAIN LEVEL 7 - 10 Verapamil HCl 240 mg 03/27/19 22:00 03/27/19 21:54 Calan Sr - PO 240 mg HS MARIO Administration Vitamin A 10,000 units 03/28/19 10:00 03/28/19 09:13 Aquasol A - PO 10,000 units DAILY MARIO Administration Vitamin E 400 unit 03/28/19 10:00 03/28/19 09:14 Vitamin E - PO 400 unit DAILY [facility]IO Administration - NO anesthetic complications
[2019-03-28] MEDS: SODIUM CHLORIDE 1,000 ML IV SCH ×2 (21:30→22:51)
[2019-03-28] MEDS: ATORVASTATIN CA 10 MG TABLET (FP) PO SCH (22:56)
[2019-03-28] MEDS: VERAPAMIL HCL 240 MG E.R. TABLET PO SCH (22:56)
[2019-03-28] MEDS: NIACIN 500 MG TABLET PO SCH (22:57)
[2019-03-28] MEDS: DOXAZOSIN MESYLATE 2 MG TABLET (FP) PO SCH (22:57)
[2019-03-28] MEDS: ACETAMINOPHEN 1000 MG/100 ML VIAL (NON FORMULARY) IVPB PRN (23:08)
--- NOTE | 2019-03-29 07:18 | DS ---
Physical Exam: SUBJECTIVE: Patient seen and examined History of Present Illness: The patient is an 84 year old male, with a significant PMH of HTN, HLD and AVR(t ) (not on AC) who was BIBA s/p slipping on ice and falling. POD#2 quad tendon rupture repair.Medically stable for discharge to SNF OBJECTIVE: Vital Signs Period Temp Pulse Resp BP Sys/Gonzalez Pulse Ox Last 24 Hr 98.1 F-99.4 F 50-98 17-20 97-129/51-61 97-98 PHYSICAL EXAM Constitutional: Yes: Well Nourished, No Distress, Calm Eyes: Yes: WNL, Conjunctiva Clear HENT: Yes: WNL, Atraumatic, Normocephalic Neck: Yes: WNL, Supple, Trachea Midline Cardiovascular: Yes: WNL, Regular Rate and Rhythm Respiratory: Yes: WNL, Regular, CTA Bilaterally Gastrointestinal: Yes: WNL, Normal Bowel Sounds ...Rectal Exam: Yes: Deferred Genitourinary: Yes: WNL Breast(s): Yes: WNL Musculoskeletal: Yes: Joint Stiffness, Joint Swelling Extremities: Yes: WNL Edema: Yes Edema: LLE: Trace, RLE: 1+ Peripheral Pulses WNL: Yes Peripheral Pulses: Left Radial: 2+, Right Radial: 2+, Left Doralis Pedis: 2+, Right Dorsalis Pedis: 2+, Left Femoral: 2+, Right Femoral: 2+ Integumentary: Yes: WNL Wound/Incision: Yes: Clean/Dry, [place] Intact, Other (knee immobilizer in place ) Neurological: Yes: WNL, Alert, Oriented ...Motor Strength: LLE, RLE (POD #1) Psychiatric: Yes: WNL LABS HOSPITAL COURSE: Date of Admission:18/19 Date of Discharge: /22/19 - Problems (1) Prophylactic measure Assessment/Plan: FEN tolerating diet contiuecardiac diet DVT no AC, during stay. Resume asprin Dispo [facility] accepted pt and medcially stable for dc for [facility] Code(s): Z29.9 - ENCOUNTER FOR PROPHYLACTIC MEASURES, UNSPECIFIED (2) Fall Assessment/Plan: s/p fall on ice POD#2 quad tendon rupture repair done under spinal anesthesia with PNB. No anesthesic or ricardo-operative complicatons Code(s): W19.XXXA - UNSPECIFIED FALL, INITIAL ENCOUNTER (3) Hemarthrosis Assessment/Plan: POD#2 knee immobilizer Physical therapy Code(s): M25.00 - HEMARTHROSIS, UNSPECIFIED JOINT (4) Aortic valve replaced Assessment/Plan: no AC resume asa Code(s): Z95.2 - PRESENCE OF PROSTHETIC HEART VALVE (5) HLD (hyperlipidemia) Assessment/Plan: c/w atorvastatin cardiac diet Code(s): E78.5 - HYPERLIPIDEMIA, UNSPECIFIED (6) HTN (hypertension) Assessment/Plan: c/w verapamil/cardura Code(s): I10 - ESSENTIAL (PRIMARY) HYPERTENSION (7) Sleep apnea Assessment/Plan: uses Cpap nightly doesnt like hospital CPAP machine-didnt use last night-daughter to bring in home machine Code(s): G47.30 - SLEEP APNEA, UNSPECIFIED (8) Quadriceps tendon rupture Assessment/Plan: full thickness tear of right quad tendon POD#2 quad tendon repair Code(s): S76.119A - STRAIN OF UNSP QUADRICEPS MUSCLE, FASCIA AND TENDON, INIT (9) Pain, postoperative, acute Assessment/Plan: POD#2 minimal pain c/w PT tramadol/anny prn pain Code(s): G89.18 - OTHER ACUTE POSTPROCEDURAL PAIN [facility] accepted pt and medcially stable for dc for [facility] Minutes to complete discharge: 45 Discharge Summary Problems reviewed: Yes Reason For Visit: HERMARTHROSIS Current Active Problems Fall (Acute) Hemarthrosis (Acute) Pain, postoperative, acute (Acute) Prophylactic measure (Acute) Quadriceps tendon rupture (Acute) Hospital Course: HOSPITAL COURSE: Date of Admission:03/25/19 Date of Discharge: 03/29/19 - Problems (1) Prophylactic measure Assessment/Plan: FEN tolerating diet contiuecardiac diet DVT no AC, during stay. Resume asprin Dispo [facility] accepted pt and medcially stable for dc for [place] Code(s): Z29.9 - ENCOUNTER FOR PROPHYLACTIC MEASURES, UNSPECIFIED (2) Fall Assessment/Plan: s/p fall on ice POD#2 quad tendon rupture repair done under spinal anesthesia with PNB. No anesthesic or ricardo-operative complicatons Code(s): W19.XXXA - UNSPECIFIED FALL, INITIAL ENCOUNTER (3) Hemarthrosis Assessment/Plan: POD#2 knee immobilizer Physical therapy Code(s): M25.00 - HEMARTHROSIS, UNSPECIFIED JOINT (4) Aortic valve replaced Assessment/Plan: no AC resume asa Code(s): Z95.2 - PRESENCE OF PROSTHETIC HEART VALVE (5) HLD (hyperlipidemia) Assessment/Plan: c/w atorvastatin cardiac diet Code(s): E78.5 - HYPERLIPIDEMIA, UNSPECIFIED (6) HTN (hypertension) Assessment/Plan: c/w verapamil/cardura Code(s): I10 - ESSENTIAL (PRIMARY) HYPERTENSION (7) Sleep apnea Assessment/Plan: uses Cpap nightly doesnt like hospital CPAP machine-didnt use last night-daughter to bring in home machine Code(s): G47.30 - SLEEP APNEA, UNSPECIFIED (8) Quadriceps tendon rupture Assessment/Plan: full thickness tear of right quad tendon POD#2 quad tendon repair Code(s): S76.119A - STRAIN OF UNSP QUADRICEPS MUSCLE, FASCIA AND TENDON, INIT (9) Pain, postoperative, acute Assessment/Plan: POD#2 minimal pain c/w PT tramadol/anny prn pain Code(s): G89.18 - OTHER ACUTE POSTPROCEDURAL PAIN [facility] accepted pt and medcially stable for dc for [place] Condition: Improved - Instructions Diet, Activity, Other Instructions: DISCHARGE YOUR VISIT You came to the hospital because slipped and sustained a quadricep tendon rupture and underwent a repair with Dr Call. You had spinal anesthesia and a peripheral nerve block and there were no complications. You are going to rehab and then can return home. MEDICATIONS Please continue to take your home medications as prescribed. There was no changes DIET Continue your home diet ADDITIONAL CARE Please make an appointment to see your primary care provider, 1 week after you get home from rehab. Call Dr Mahoney office when you are at rehab to make an appointment for follow up ADDITIONAL INFORMATION Please call 911 or come directly to the emergency department if you experience unusual headache, vision change, shortness of breath, chest pain, numbness, tingling, loss of alertness/awareness, loss of function, unusual bleeding or any alarming symptoms. Thank you for allowing me to care for you. Jose De La Cruz, ACNP, [facility] Disposition: [facility] FACILITY - Home Medications Comprehensive Discharge Medication List: Ambulatory Orders Atorvastatin Ca [Lipitor] 5 mg PO HS 10/25/14 Doxazosin Mesylate 2 mg PO HS 10/25/14 Olmesartan/Hydrochlorothiazide [Benicar Hct 40-25 mg Tablet] 1 each PO DAILY [place]-3 Acid Ethyl Esters [Lovaza -] 2 gm PO BID 10/25/14 Ranitidine [Zantac -] 150 mg PO BID 10/25/14 Verapamil HCl [Verapamil ER] 240 mg PO HS 10/25/14 Aspirin Coated [Ecotrin -] 81 mg PO DAILY #0 10/28/14 Niacin [Niaspan] 500 mg PO HS #0 10/28/14 Acetaminophen [Tylenol .Extra-Strength -] 500 mg PO BID 03/08/15 Ascorbic Acid [Vitamin C] 500 mg PO DAILY 03/08/15 Docusate Sodium [Colace -] 100 mg PO BID 03/08/15 Glucosamine HCl/Chondr Amador A Na [Glucosamine-Chondr Caplet] 1 each PO DAILY 03/08 Vitamin A [Aquasol A -] 10,000 units NR DAILY 03/08/15 Vitamin E 400 unit PO DAILY 03/08/15 Zinc [Guided Mineral Zinc] 50 mg PO DAILY 03/08/15 Problem List - Problems (1) Prophylactic measure Code(s): Z29.9 - ENCOUNTER FOR PROPHYLACTIC MEASURES, UNSPECIFIED (2) Fall Code(s): W19.XXXA - UNSPECIFIED FALL, INITIAL ENCOUNTER (3) Hemarthrosis Code(s): M25.00 - HEMARTHROSIS, UNSPECIFIED JOINT (4) Aortic valve replaced Code(s): Z95.2 - PRESENCE OF PROSTHETIC HEART VALVE (5) HLD (hyperlipidemia) Code(s): E78.5 - HYPERLIPIDEMIA, UNSPECIFIED (6) HTN (hypertension) Code(s): I10 - ESSENTIAL (PRIMARY) HYPERTENSION (7) Sleep apnea Code(s): G47.30 - SLEEP APNEA, UNSPECIFIED (8) Quadriceps tendon rupture Code(s): S76.119A - STRAIN OF UNSP QUADRICEPS MUSCLE, FASCIA AND TENDON, INIT (9) Pain, postoperative, acute Code(s): G89.18 - OTHER ACUTE POSTPROCEDURAL PAIN This patient is new to me today: No Emergency Visit: Yes ED Registration Date: 03/25/19 Care time: The patient presented to the Emergency Department on the above date and was hospitalized for further evaluation of their emergent condition. Critical Care patient: No - Discharge Referral Referred to [facility] No
[2019-03-29] MEDS: DOCUSATE SODIUM 100 MG CAPSULE (FP) PO SCH (10:10)
[2019-03-29] MEDS: ASCORBIC ACID 500 MG TABLET (FP) PO SCH (10:10)
[2019-03-29] MEDS: FAMOTIDINE 40 MG/5 ML ORAL SUSPENSION PO SCH (10:11)
[2019-03-29] MEDS: OMEGA-3 ACID ETHYL ESTERS (FATTY-ACIDS) 1 GM CAPSULE (FP) PO SCH (10:12)
[2019-03-29] MEDS: VITAMIN A 10,000 UNITS CAPSULE PO SCH (10:15)
[2019-03-29] MEDS: VITAMIN E 400 INTERNATIONAL-UNITS CAPSULE (FP) PO SCH (10:16)
[2019-03-29] MEDS: ACETAMINOPHEN 1000 MG/100 ML VIAL (NON FORMULARY) IVPB PRN (10:35)
[2019-03-29 13:30] VITALS: BP 110/51; PULSE 90; TEMP 98.8
--- NOTE | 2019-03-29 14:36 | PN ---
Progress Note (short form) - Note Progress Note: Ortho Pt seen and examined s/p right quad tendon repair pod #2. Doing well Selected Entries 03/29/19 13:28 Temperature 98.8 F Pulse Rate 90 Respiratory 20 Rate Blood Pressure 110/51 L Laboratory Tests 03/27/19 12:10 WBC 8.3 Hgb 9.2 L Hct 27.6 L D Plt Count 150 dressing c/d/i, calf soft, nt nvi a/p PT wbat with knee immobilizer on No flexing of the knee pain control d/c planning to rehab tomorrow
--- NOTE | 2019-04-03 18:59 | OP ---
DATE OF OPERATION: 03/27/2019 PREOPERATIVE DIAGNOSIS: Right quadriceps tendon rupture. POSTOPERATIVE DIAGNOSIS: Right quadriceps tendon rupture. PROCEDURE: Right quadriceps tendon repair. SURGICAL ATTENDING: Stephan Dougherty M.D. ADDICTION THERAPIST: Magalys Cheung ANESTHESIA: Spinal. CLOSURE: Number 2 suture tape for tendon, number 1 Vicryl for retinaculum, 0 and 2-0 for subcutaneous, 3-0 Monocryl subcuticular for skin with skin glue. COMPLICATIONS: None. CONDITION: To recovery in stable condition. ESTIMATED BLOOD LOSS: Negligible. DESCRIPTION OF OPERATIVE PROCEDURE: Patient taken to the operating room on March 27, 2019. Spinal anesthesia was administered by the anesthesiologist. IV Kefzol was administered prophylactically prior to the case. The right lower extremity was prepped and draped in the usual sterile fashion. An 8 to 10 cm longitudinal incision over the patella was incised, hemostasis achieved with Bovie cautery. Sharp dissection was carried down to the quadriceps mechanism and patella. A large hematoma was encountered in and around the tendon and intraarticularly this was evacuated using suction and irrigation. The superior pole of the patella was found to be completely devoid of quadriceps tendon. This area was rongeured, and a small indentation of the superior pole for later implantation was prepared. The tendon itself was cleaned of clots and hematoma. Number 2 suture tape suture was weaved up and down the sides and in the central portion of the tendon, achieving excellent tension. Three parallel drill holes were drilled through the patella to the inferior pole of the patella by use of a piece pin. The center hole was utilized to pass the 2 middle limbs of the sutures, and then the medial and lateral each passed 1 limb, exiting the inferior pole of the patella. The central 2 limbs were then passed underneath the tendon until they met up with their medial and lateral counterparts. The knee was then extended, and the sutures were sutured snugly to the inferior pole of the patella. Excellent end-to-end repair of the quadriceps tendon to the superior pole of the patella was obtained. The retinaculum was found to be torn both medially and laterally. This was repaired using number 1 Vicryl suture. Post repair, the knee was taken through range of motion, found to go from full extension to almost 90 degrees with no undue tension on the repair. The subcutaneous was irrigated with copious amount of irrigation. The paratenon was closed with 2-0 Vicryl, the subcutaneous with 2-0 Vicryl, and 3-0 Monocryl subcuticular with skin glue for the skin. A sterile pressure dressing was applied followed by an ice knee immobilizer. Patient awakened from anesthesia and transferred to recovery in stable condition. No complications. Estimated blood loss negligible. Sundar HARPER/[id number]
== END 2019-03-29 18:10 | DRG 502 ==
LOC: JER 10:59 → JERBED 16:23 → J7W 03-26 19:48
PROVIDERS: ADMIT Internal Medicine; ATTEND Nurse Practitioner Acute Care
PROC: 0LQM0ZZ Repair Left Upper Leg Tendon, Open Approach (ICD-10-PCS; principal; 2019-03-27 13:30)
DX: S76.111A Strain of right quadriceps muscle, fascia and tendon, initial encounter (principal); S70.11XA Contusion of right thigh, initial encounter; M25.461 Effusion, right knee; G47.30 Sleep apnea, unspecified; I10 Essential (primary) hypertension; E78.5 Hyperlipidemia, unspecified; W18.39XA Other fall on same level, initial encounter; Y93.89 Activity, other specified; Y92.89 Other specified places as the place of occurrence of the external cause; Z95.2 Presence of prosthetic heart valve; Z87.891 Personal history of nicotine dependence; G89.18 Other acute postprocedural pain
CPT/HCPCS: 36415; 70450-TC; 71101-TC-RT-FY; 72100-TC-FY; 73523-TC-FY; 73552-TC-RT-FY; 73562-TC-RT-FY; 73718-TC-RT; 80053; 83735; 85025; 85610; 85730; 94660; 94760; 97116-GP; 97162-GP; 99285-25; J0131; J1644; J7030

== ENCOUNTER 2023-02-17 14:26 | Inpatient (IN) | payer OTHER, BC ==
[2023-02-17 14:42] VITALS: BMI 25.8
[2023-02-17] MEDS ORDERED: ACETAMINOPHEN 1000 MG/100 ML BAG IVPB ONE ×2 (15:29→19:00)
[2023-02-17] MEDS ORDERED: VANCOMYCIN 1,000 MG in DEXTROSE 5%-WATER - 250 ML IVPB ONE (15:39)
[2023-02-17] MEDS ORDERED: PIPERACILLIN/TAZOB 4.5 GM 4.5 GM in DEXTROSE 5%-WATER 100 ML IVPB ONE (15:40)
[2023-02-17] MEDS ORDERED: PIPERACILLIN/TAZOB 4.5 GM 4.5 GM/100 ML BAG IVPB ONE (16:28)
[2023-02-17] MEDS ORDERED: VANCOMYCIN 1 GRAM (PRE-DOCKED) 1,000 MG/250 ML BAG IVPB ONE ×2 (16:28→16:29)
[2023-02-17] MEDS ORDERED: ACETAMINOPHEN INJECTION 100 ML IVPB ONE (16:28)
[2023-02-17] MEDS ORDERED: SODIUM CHLORIDE 0.9% 500 ML INFUS.BAG IV ONE (16:40)
[2023-02-17] MEDS ORDERED: BACITRACIN ZINC 15 GM TUBE TOPICAL OINTMENT TP ONE (16:45)
[2023-02-17 16:53] LABS: BASO % 0.4 % (0-2.0); EOS % 3.5 % (0-4.5); HEMATOCRIT 31.7 % (35.4-49); HEMOGLOBIN 10.6 GM/dL (11.7-16.9); LYMPH % 9.8 % (8-40); MCH 30.5 pg (25.7-33.7); MCHC 33.6 g/dl (32.0-35.9); MEAN CELL VOLUME 90.9 fl (80-96); MEAN PLT VOLUME 9.3 fl (7.5-11.1); MONO % 7.4 % (3.8-10.2); NEUT % 78.9 % (42.8-82.8); PLATELET COUNT 211 10^3/uL (134-434); RBC 3.48 M/mm3 (4.00-5.60); RDW 14.7 % (11.9-15.9); WHITE BLOOD COUNT 9.8 K/mm3 (4.0-10.0)
[2023-02-17 17:01] LABS: INR 1.1 (0.83-1.09); PROTHROMBIN TIME (PATIENT) 12.8 SEC (9.7-13.0)
[2023-02-17 17:03] LABS: ACTIVATED PTT 29.9 SECONDS (25.2-36.5)
[2023-02-17 17:12] LABS: POTASSIUM 4.9 mmol/L (3.5-5.1)
[2023-02-17 17:14] LABS: CALCIUM 8.5 mg/dL (8.5-10.1)
[2023-02-17 17:15] LABS: ALBUMIN 3.2 g/dl (3.4-5.0); BLOOD UREA NITROGEN 30.4 mg/dL (7-18)
[2023-02-17 17:20] LABS: BILIRUBIN,TOTAL 0.6 mg/dL (0.2-1); TOT PROT 7.2 g/dl (6.4-8.2)
[2023-02-17 19:19] LABS: EPI CELLS 5 /uL (0-25.1); HYALINE CASTS 0 /uL (0-3.1); URINE APPEARANCE CLEAR; URINE BACTERIA 1 /uL (0-1359); URINE BILIRUBIN NEGATIVE (NEGATIVE); URINE COLOR YELLOW; URINE GLUCOSE (UA) NEGATIVE (NEGATIVE); URINE KETONE NEGATIVE (NEGATIVE); URINE LEUK ESTERASE TRACE (NEGATIVE); URINE NITRITE NEGATIVE (NEGATIVE); URINE PROTEIN NEGATIVE (NEGATIVE); URINE RBC 17 /uL (0-23.9); URINE WBC 8 /uL (0-25.8)
[2023-02-17] MEDS ORDERED: KETOROLAC TROMETHAMINE 15 MG/ML VIAL IVPUSH ONE (22:20)
[2023-02-17] MEDS ORDERED: KETOROLAC TROMETHAMINE 15 MG/ML VIAL ONE (22:45)
[2023-02-17] MEDS ORDERED: ACETAMINOPHEN 1000 MG/100 ML BAG IVPB PRN (23:09)
[2023-02-18] MEDS ORDERED: morphine CARPU-JECT 2 MG/1 ML DISP.SYRIN IVPUSH PRN (00:43)
[2023-02-18] MEDS: PIPERACILLIN/TAZOB 2.25 GM 2.25 GM in DEXTROSE 5%-WATER - 50 ML IVPB SCH ×2 (05:06→10:00)
[2023-02-18] MEDS ORDERED: PIPERACILLIN/TAZOB 2.25 GM 2.25 GM/50 ML BAG IVPB ONE ×3 (05:08→10:00)
[2023-02-18] MEDS: LOSARTAN POTASSIUM 50 MG TABLET PO SCH (10:00)
[2023-02-18] MEDS: POLYETHYLENE GLYCOL (HEALTHYLAX) 3350 17 GM PACKET PO SCH (10:00)
[2023-02-18] MEDS: GENTAMICIN SO4 0.1% TOPICAL OINTMENT 15 GM/TUBE TUBE TP SCH ×2 (10:00→22:13)
[2023-02-18] MEDS: HYDROCHLOROTHIAZIDE 25 MG TABLET (FP) PO SCH (10:00)
[2023-02-18] MEDS ORDERED: POLYETHYLENE GLYCOL (HEALTHYLAX) 3350 17 GM PACKET ONE (13:28)
[2023-02-18] MEDS: PIPERACILLIN/TAZOB 3.375 GM 3.375 GM in DEXTROSE 5%-WATER - 50 ML IVPB SCH (19:04)
[2023-02-18] MEDS: VANCOMYCIN/WATER FOR INJ (PEG) 1,000 MG/200 ML BAG IVPB SCH (22:00)
[2023-02-18] MEDS: PANTOPRAZOLE 20 MG TABLET PO SCH (22:13)
[2023-02-18] MEDS: ATORVASTATIN CA 10 MG TABLET (FP) PO SCH (22:13)
[2023-02-18] MEDS: DOXAZOSIN MESYLATE 2 MG TABLET PO SCH (22:14)
[2023-02-18] MEDS: VERAPAMIL HCL 240 MG E.R. TABLET PO SCH (22:14)
[2023-02-19] MEDS: PIPERACILLIN/TAZOB 3.375 GM 3.375 GM in DEXTROSE 5%-WATER - 50 ML IVPB SCH ×3 (02:04→17:24)
[2023-02-19] MEDS ORDERED: PIPERACILLIN/TAZOB 2.25 GM 2.25 GM in DEXTROSE 5%-WATER - 50 ML IVPB SCH (03:00)
[2023-02-19] MEDS: VANCOMYCIN/WATER FOR INJ (PEG) 1,000 MG/200 ML BAG IVPB SCH ×2 (05:30→16:02)
[2023-02-19] MEDS: ENOXAPARIN NA (PORCINE) 40 MG/0.4 ML DISP.SYRIN SQ SCH (09:25)
[2023-02-19] MEDS: GENTAMICIN SO4 0.1% TOPICAL OINTMENT 15 GM/TUBE TUBE TP SCH ×2 (09:25→22:45)
[2023-02-19] MEDS: HYDROCHLOROTHIAZIDE 25 MG TABLET (FP) PO SCH (09:27)
[2023-02-19] MEDS: POLYETHYLENE GLYCOL (HEALTHYLAX) 3350 17 GM PACKET PO SCH (09:27)
[2023-02-19] MEDS: LOSARTAN POTASSIUM 50 MG TABLET PO SCH (09:31)
[2023-02-19 10:45] LABS: BASO % 0.5 % (0-2.0); EOS % 6.3 % (0-4.5); HEMATOCRIT 30.7 % (35.4-49); HEMOGLOBIN 10.4 GM/dL (11.7-16.9); MCH 30.4 pg (25.7-33.7); MEAN CELL VOLUME 89.4 fl (80-96); MEAN PLT VOLUME 8.7 fl (7.5-11.1); NEUT % 70.2 % (42.8-82.8); PLATELET COUNT 200 10^3/uL (134-434); RBC 3.43 M/mm3 (4.00-5.60); RDW 14.5 % (11.9-15.9); WHITE BLOOD COUNT 7.6 K/mm3 (4.0-10.0)
[2023-02-19 11:00] LABS: POTASSIUM 3.7 mmol/L (3.5-5.1)
[2023-02-19 11:05] LABS: CALCIUM 8.3 mg/dL (8.5-10.1)
[2023-02-19 11:06] LABS: ALBUMIN 2.7 g/dl (3.4-5.0); BLOOD UREA NITROGEN 23.9 mg/dL (7-18)
[2023-02-19 11:08] LABS: PHOSPHOROUS 3.8 mg/dL (2.5-4.9)
[2023-02-19 11:09] LABS: CREATININE 0.9 mg/dL (0.55-1.3)
[2023-02-19 11:10] LABS: BILIRUBIN,TOTAL 0.8 mg/dL (0.2-1); TOT PROT 6.2 g/dl (6.4-8.2)
[2023-02-19] MEDS: PANTOPRAZOLE 20 MG TABLET PO SCH (22:07)
[2023-02-19] MEDS: VERAPAMIL HCL 240 MG E.R. TABLET PO SCH (22:07)
[2023-02-19] MEDS: DOXAZOSIN MESYLATE 2 MG TABLET PO SCH (22:45)
[2023-02-20] MEDS: PIPERACILLIN/TAZOB 3.375 GM 3.375 GM in DEXTROSE 5%-WATER - 50 ML IVPB SCH ×3 (01:46→17:00)
[2023-02-20] MEDS: VANCOMYCIN/WATER FOR INJ (PEG) 1,000 MG/200 ML BAG IVPB SCH ×2 (04:05→17:00)
[2023-02-20] MEDS: ENOXAPARIN NA (PORCINE) 40 MG/0.4 ML DISP.SYRIN SQ SCH (09:16)
[2023-02-20] MEDS: LOSARTAN POTASSIUM 50 MG TABLET PO SCH (09:17)
[2023-02-20] MEDS: HYDROCHLOROTHIAZIDE 25 MG TABLET (FP) PO SCH (09:18)
[2023-02-20] MEDS ORDERED: ACETAMINOPHEN 325 MG TABLET (FP) PO PRN (09:19)
[2023-02-20] MEDS: POLYETHYLENE GLYCOL (HEALTHYLAX) 3350 17 GM PACKET PO SCH (09:25)
[2023-02-20 09:31] VITALS: RESP 18
[2023-02-20] MEDS ORDERED: NAPROXEN 250 MG TABLET PO SCH (10:00)
[2023-02-20 10:38] LABS: HEMATOCRIT 32.3 % (35.4-49); HEMOGLOBIN 10.7 GM/dL (11.7-16.9); MCH 30.1 pg (25.7-33.7); MEAN CELL VOLUME 91.2 fl (80-96); MEAN PLT VOLUME 8.3 fl (7.5-11.1); PLATELET COUNT 206 10^3/uL (134-434); RBC 3.54 M/mm3 (4.00-5.60); RDW 14.2 % (11.9-15.9); WHITE BLOOD COUNT 6.5 K/mm3 (4.0-10.0)
[2023-02-20 11:05] LABS: POTASSIUM 3.6 mmol/L (3.5-5.1)
[2023-02-20 11:23] LABS: BLOOD UREA NITROGEN 22.1 mg/dL (7-18)
[2023-02-20 11:25] LABS: CALCIUM 8.4 mg/dL (8.5-10.1); MAGNESIUM 1.9 mg/dL (1.8-2.4)
[2023-02-20 11:26] LABS: PHOSPHOROUS 3.3 mg/dL (2.5-4.9)
[2023-02-20] MEDS: ASPIRIN 81 MG CHEWABLE TABLETS PO SCH (12:20)
[2023-02-20] MEDS: GENTAMICIN SO4 0.1% TOPICAL OINTMENT 15 GM/TUBE TUBE TP SCH ×2 (12:20→22:01)
[2023-02-20] MEDS ORDERED: KETOROLAC TROMETHAMINE 30 MG/1 ML VIAL IM PRN (14:01)
[2023-02-20] MEDS ORDERED: PIPERACILLIN/TAZOBACTAM 3.375 GM VIAL IVPB ONE (16:57)
[2023-02-20] MEDS: ACETAMINOPHEN 500 MG TABLET (FP) PO SCH (17:19)
[2023-02-20] MEDS ORDERED: KETOROLAC TROMETHAMINE 30 MG/1 ML VIAL IVPUSH PRN ×2 (17:24→17:25)
[2023-02-20] MEDS ORDERED: DOCUSATE SODIUM 100 MG CAPSULE (FP) PO PRN (17:26)
[2023-02-20] MEDS: VERAPAMIL HCL 240 MG E.R. TABLET PO SCH (21:58)
[2023-02-20] MEDS: ATORVASTATIN CA 10 MG TABLET (FP) PO SCH (21:58)
[2023-02-20] MEDS: PANTOPRAZOLE 20 MG TABLET PO SCH (21:58)
[2023-02-20] MEDS: DOXAZOSIN MESYLATE 2 MG TABLET PO SCH (21:58)
[2023-02-20] MEDS: LIDOCAINE PATCH REMOVAL MC SCH (22:28)
[2023-02-21] MEDS: ACETAMINOPHEN 500 MG TABLET (FP) PO SCH ×5 (02:13→23:52)
[2023-02-21] MEDS: PIPERACILLIN/TAZOB 3.375 GM 3.375 GM in DEXTROSE 5%-WATER - 50 ML IVPB SCH (02:14)
[2023-02-21] MEDS: VANCOMYCIN/WATER FOR INJ (PEG) 1,000 MG/200 ML BAG IVPB SCH ×2 (04:10→16:51)
[2023-02-21 09:10] LABS: HEMATOCRIT 33.6 % (35.4-49); HEMOGLOBIN 11.1 GM/dL (11.7-16.9); MCH 30.1 pg (25.7-33.7); MEAN PLT VOLUME 8.3 fl (7.5-11.1); PLATELET COUNT 227 10^3/uL (134-434); RBC 3.69 M/mm3 (4.00-5.60); RDW 14.2 % (11.9-15.9); WHITE BLOOD COUNT 6.6 K/mm3 (4.0-10.0)
[2023-02-21 09:24] LABS: POTASSIUM 3.9 mmol/L (3.5-5.1)
[2023-02-21 09:26] LABS: BLOOD UREA NITROGEN 24.4 mg/dL (7-18); CALCIUM 8.5 mg/dL (8.5-10.1)
[2023-02-21] MEDS: oxyCODONE HCL 5 MG TABLET PO PRN (09:48)
[2023-02-21] MEDS: LIDOCAINE 4% PATCH TP SCH (09:49)
[2023-02-21] MEDS: LOSARTAN POTASSIUM 50 MG TABLET PO SCH (09:50)
[2023-02-21] MEDS: POLYETHYLENE GLYCOL (HEALTHYLAX) 3350 17 GM PACKET PO SCH (09:50)
[2023-02-21] MEDS: ASPIRIN 81 MG CHEWABLE TABLETS PO SCH (09:50)
[2023-02-21] MEDS: HYDROCHLOROTHIAZIDE 25 MG TABLET (FP) PO SCH (09:50)
[2023-02-21] MEDS: ENOXAPARIN NA (PORCINE) 40 MG/0.4 ML DISP.SYRIN SQ SCH (09:51)
[2023-02-21] MEDS: CEFTRIAXONE 2 GM in DEXTROSE 5%-WATER 100 ML IVPB SCH (09:51)
[2023-02-21] MEDS: GENTAMICIN SO4 0.1% TOPICAL OINTMENT 15 GM/TUBE TUBE TP SCH ×2 (09:59→23:56)
[2023-02-21] MEDS: VERAPAMIL HCL 240 MG E.R. TABLET PO SCH (21:33)
[2023-02-21] MEDS: PANTOPRAZOLE 20 MG TABLET PO SCH (21:33)
[2023-02-21] MEDS: DOXAZOSIN MESYLATE 2 MG TABLET PO SCH (21:33)
[2023-02-21] MEDS: LIDOCAINE PATCH REMOVAL MC SCH (21:35)
[2023-02-22] MEDS: VANCOMYCIN/WATER FOR INJ (PEG) 1,000 MG/200 ML BAG IVPB SCH ×2 (05:49→17:27)
[2023-02-22] MEDS: ACETAMINOPHEN 500 MG TABLET (FP) PO SCH ×4 (05:50→23:03)
[2023-02-22 10:52] LABS: HEMATOCRIT 34.6 % (35.4-49); HEMOGLOBIN 11.6 GM/dL (11.7-16.9); MCH 30.2 pg (25.7-33.7); MCHC 33.4 g/dl (32.0-35.9); MEAN CELL VOLUME 90.3 fl (80-96); MEAN PLT VOLUME 8.5 fl (7.5-11.1); PLATELET COUNT 223 10^3/uL (134-434); RBC 3.83 M/mm3 (4.00-5.60); RDW 14.3 % (11.9-15.9)
[2023-02-22 10:53] LABS: POTASSIUM 3.9 mmol/L (3.5-5.1)
[2023-02-22] MEDS: ENOXAPARIN NA (PORCINE) 40 MG/0.4 ML DISP.SYRIN SQ SCH (10:55)
[2023-02-22] MEDS: LOSARTAN POTASSIUM 50 MG TABLET PO SCH (10:57)
[2023-02-22] MEDS: ASPIRIN 81 MG CHEWABLE TABLETS PO SCH (10:57)
[2023-02-22 10:58] LABS: CALCIUM 8.8 mg/dL (8.5-10.1)
[2023-02-22] MEDS: HYDROCHLOROTHIAZIDE 25 MG TABLET (FP) PO SCH (10:58)
[2023-02-22] MEDS: LIDOCAINE 4% PATCH TP SCH (10:58)
[2023-02-22] MEDS: POLYETHYLENE GLYCOL (HEALTHYLAX) 3350 17 GM PACKET PO SCH (10:58)
[2023-02-22 10:59] LABS: ALBUMIN 2.9 g/dl (3.4-5.0); BLOOD UREA NITROGEN 26.2 mg/dL (7-18)
[2023-02-22] MEDS: GENTAMICIN SO4 0.1% TOPICAL OINTMENT 15 GM/TUBE TUBE TP SCH ×2 (10:59→21:53)
[2023-02-22 11:02] LABS: CREATININE 1.1 mg/dL (0.55-1.3)
[2023-02-22 11:03] LABS: BILIRUBIN,TOTAL 0.4 mg/dL (0.2-1); TOT PROT 6.7 g/dl (6.4-8.2)
[2023-02-22] MEDS: CEFTRIAXONE 2 GM in DEXTROSE 5%-WATER 100 ML IVPB SCH (11:50)
[2023-02-22] MEDS: ATORVASTATIN CA 10 MG TABLET (FP) PO SCH (21:53)
[2023-02-22] MEDS: DOXAZOSIN MESYLATE 2 MG TABLET PO SCH (21:53)
[2023-02-22] MEDS: PANTOPRAZOLE 20 MG TABLET PO SCH (21:53)
[2023-02-22] MEDS: VERAPAMIL HCL 240 MG E.R. TABLET PO SCH (21:53)
[2023-02-22] MEDS: LIDOCAINE PATCH REMOVAL MC SCH (21:53)
[2023-02-23] MEDS: VANCOMYCIN/WATER FOR INJ (PEG) 1,000 MG/200 ML BAG IVPB SCH ×2 (06:02→16:24)
[2023-02-23] MEDS: ACETAMINOPHEN 500 MG TABLET (FP) PO SCH ×4 (06:03→23:09)
[2023-02-23] MEDS: POLYETHYLENE GLYCOL (HEALTHYLAX) 3350 17 GM PACKET PO SCH (09:00)
[2023-02-23] MEDS: LOSARTAN POTASSIUM 50 MG TABLET PO SCH (09:00)
[2023-02-23] MEDS: GENTAMICIN SO4 0.1% TOPICAL OINTMENT 15 GM/TUBE TUBE TP SCH ×2 (09:00→23:00)
[2023-02-23] MEDS: ENOXAPARIN NA (PORCINE) 40 MG/0.4 ML DISP.SYRIN SQ SCH (09:00)
[2023-02-23] MEDS: HYDROCHLOROTHIAZIDE 25 MG TABLET (FP) PO SCH (09:00)
[2023-02-23] MEDS: ASPIRIN 81 MG CHEWABLE TABLETS PO SCH (09:00)
[2023-02-23] MEDS: LIDOCAINE 4% PATCH TP SCH (09:00)
[2023-02-23] MEDS: CEFTRIAXONE 2 GM in DEXTROSE 5%-WATER 100 ML IVPB SCH (09:01)
[2023-02-23] MEDS ORDERED: INSULIN (NOVOLOG) ASPART 100 UNITS/ML 10ML VIAL ONE (11:20)
[2023-02-23] MEDS ORDERED: IBUPROFEN 600 MG TABLET (FP) PO PRN (18:21)
[2023-02-23] MEDS: DOXAZOSIN MESYLATE 2 MG TABLET PO SCH (23:00)
[2023-02-23] MEDS: VERAPAMIL HCL 240 MG E.R. TABLET PO SCH (23:00)
[2023-02-23] MEDS: PANTOPRAZOLE 20 MG TABLET PO SCH (23:00)
[2023-02-23] MEDS: LIDOCAINE PATCH REMOVAL MC SCH (23:19)
[2023-02-24] MEDS: VANCOMYCIN/WATER FOR INJ (PEG) 1,000 MG/200 ML BAG IVPB SCH (06:00)
[2023-02-24] MEDS: ACETAMINOPHEN 500 MG TABLET (FP) PO SCH ×4 (06:37→23:30)
[2023-02-24] MEDS: CEFTRIAXONE 2 GM in DEXTROSE 5%-WATER 100 ML IVPB SCH (09:19)
[2023-02-24] MEDS: POLYETHYLENE GLYCOL (HEALTHYLAX) 3350 17 GM PACKET PO SCH (09:20)
[2023-02-24] MEDS: ENOXAPARIN NA (PORCINE) 40 MG/0.4 ML DISP.SYRIN SQ SCH (09:20)
[2023-02-24] MEDS: LOSARTAN POTASSIUM 50 MG TABLET PO SCH (09:20)
[2023-02-24] MEDS: LIDOCAINE 4% PATCH TP SCH (09:20)
[2023-02-24] MEDS: ASPIRIN 81 MG CHEWABLE TABLETS PO SCH (09:20)
[2023-02-24] MEDS: HYDROCHLOROTHIAZIDE 25 MG TABLET (FP) PO SCH (09:20)
[2023-02-24] MEDS: GENTAMICIN SO4 0.1% TOPICAL OINTMENT 15 GM/TUBE TUBE TP SCH ×2 (09:20→23:58)
[2023-02-24 09:24] LABS: HEMATOCRIT 33.6 % (35.4-49); HEMOGLOBIN 11.1 GM/dL (11.7-16.9); MCH 30.3 pg (25.7-33.7); MCHC 33.1 g/dl (32.0-35.9); MEAN CELL VOLUME 91.7 fl (80-96); MEAN PLT VOLUME 8.6 fl (7.5-11.1); PLATELET COUNT 218 10^3/uL (134-434); RBC 3.66 M/mm3 (4.00-5.60); RDW 14.5 % (11.9-15.9); WHITE BLOOD COUNT 7.3 K/mm3 (4.0-10.0)
[2023-02-24 10:04] LABS: POTASSIUM 4.2 mmol/L (3.5-5.1)
[2023-02-24 10:12] LABS: BILIRUBIN,TOTAL 0.6 mg/dL (0.2-1)
[2023-02-24 10:15] LABS: ALBUMIN 2.8 g/dl (3.4-5.0); CREATININE 0.9 mg/dL (0.55-1.3)
[2023-02-24 10:16] LABS: CALCIUM 8.6 mg/dL (8.5-10.1); TOT PROT 6.3 g/dl (6.4-8.2)
[2023-02-24] MEDS ORDERED: NIACIN 500 MG TABLET PO SCH (22:00)
[2023-02-24] MEDS: DOXAZOSIN MESYLATE 2 MG TABLET PO SCH (23:26)
[2023-02-24] MEDS: ATORVASTATIN CA 10 MG TABLET (FP) PO SCH (23:26)
[2023-02-24] MEDS: PANTOPRAZOLE 20 MG TABLET PO SCH (23:26)
[2023-02-24] MEDS: VERAPAMIL HCL 240 MG E.R. TABLET PO SCH (23:26)
[2023-02-24] MEDS: LIDOCAINE PATCH REMOVAL MC SCH (23:29)
[2023-02-24] MEDS: OMEGA-3 ACID ETHYL ESTERS (FATTY-ACIDS) 1 GM CAPSULE (FP) PO SCH (23:57)
[2023-02-25 04:03] VITALS: TEMP 97.5
[2023-02-25] MEDS: ACETAMINOPHEN 500 MG TABLET (FP) PO SCH ×2 (06:41→12:09)
[2023-02-25] MEDS: ENOXAPARIN NA (PORCINE) 40 MG/0.4 ML DISP.SYRIN SQ SCH (09:16)
[2023-02-25] MEDS: ASPIRIN 81 MG CHEWABLE TABLETS PO SCH (09:17)
[2023-02-25] MEDS: POLYETHYLENE GLYCOL (HEALTHYLAX) 3350 17 GM PACKET PO SCH (09:17)
[2023-02-25] MEDS: oxyCODONE HCL 5 MG TABLET PO PRN (09:17)
[2023-02-25] MEDS: CEFTRIAXONE 2 GM in DEXTROSE 5%-WATER 100 ML IVPB SCH (09:17)
[2023-02-25] MEDS: LIDOCAINE 4% PATCH TP SCH (09:17)
[2023-02-25] MEDS: LOSARTAN POTASSIUM 50 MG TABLET PO SCH (09:18)
[2023-02-25] MEDS: HYDROCHLOROTHIAZIDE 25 MG TABLET (FP) PO SCH (09:18)
[2023-02-25] MEDS: OMEGA-3 ACID ETHYL ESTERS (FATTY-ACIDS) 1 GM CAPSULE (FP) PO SCH (09:19)
[2023-02-25] MEDS: GENTAMICIN SO4 0.1% TOPICAL OINTMENT 15 GM/TUBE TUBE TP SCH (10:21)
[2023-02-25 16:01] VITALS: BP 135/73; PULSE 74
[2023-02-25] MEDS ORDERED: SULFAMETHOXAZOLE/TRIMETHOPRIM 800MG/160MG D.S. TABLET PO SCH (22:00)
== END 2023-02-25 17:30 | DRG 552 ==
LOC: JER 14:26 → JERBED 21:52 → OBSVTOIN 21:52 → J6S 02-18 19:34
PROVIDERS: ADMIT Internal Medicine; ATTEND Internal Medicine
DX: S32.040A Wedge compression fracture of fourth lumbar vertebra, initial encounter for closed fracture (principal); L03.116 Cellulitis of left lower limb; L97.929 Non-pressure chronic ulcer of unspecified part of left lower leg with unspecified severity; I83.229 Varicose veins of left lower extremity with both ulcer of unspecified site and inflammation; L03.115 Cellulitis of right lower limb; I10 Essential (primary) hypertension; E78.5 Hyperlipidemia, unspecified; K21.9 Gastro-esophageal reflux disease without esophagitis; G47.33 Obstructive sleep apnea (adult) (pediatric); W19.XXXA Unspecified fall, initial encounter; Y93.9 Activity, unspecified; Y92.89 Other specified places as the place of occurrence of the external cause; Y99.9 Unspecified external cause status
CPT/HCPCS: 0241U-QW; 11042; 36415; 70450-TC; 71045-TC-FY; 72100-TC-FY; 72125-TC; 72128-TC; 72131-TC; 72141-TC; 72146-TC; 72148-TC; 72192-TC; 76856-TC; 80048; 80053; 81003; 83735; 84100; 84484; 85025; 85027; 85610; 85651; 85730; 86140; 86850; 86900; 86901; 87040; 87070; 87081; 87086; 87186; 87205; 93005; 93010; 94660; 97116-GP; 97162-GP; 99285-25; G0480